=== PATIENT | male | born 1960 | race Hispanic/Latino ===

== ENCOUNTER → 2024-10-01 | Outpatient (CLI) | payer OTHER ==
--- NOTE | 2024-10-05 16:34 | HMCSR ---
APPROVED REPORT EXAM: Two-dimensional and M-mode echocardiogram with Doppler and color Doppler. INDICATION ICD: CAD without angina I25.10 2D Dimensions RVDd3.7 cmLVEF(%)67.6 (>50%)LVED Vol(simp.)102.0 mL IVSd0.8 (0.7-1.1cm)FS(%)38 %LVES Vol(simp.)43.8 mL LVDd4.8 (3.8-5.6cm)LA (2D)3.4 (1.6-4.0cm)LVEF(%, simp.)57 % PWd1.1 (0.7-1.1cm)Ao Root(2D)2.7 (2.0-3.7cm)LA ESV INDEX (4CH)24.80 mL/m2 IVSs1.0 cmLVOT diam2.2 (1.8-2.4cm)LA ESV INDEX (2CH)23.30 mL/m2 LVDs3.0 (2.5-4.0cm)LA ESV INDEX (BP)26.30 mL/m2 PWs1.6 cm M-Mode Dimensions EPSS0.8 cm LA (MM)3.8 (1.6-4.0cm) Ao Root(MM)3.1 (2.0-3.7cm) Aortic Valve AoV VTI0.3 mAo Mean GR4.0 mmHgLVOT VTI0.15 m SHASHANK (VMAX)2.2 cm2AVA (VTI) 2.2 cm2 Mitral Valve MV E Vmax62.6 cm/sDECEL Hunm161 ms MV A Vmax64.0 cm/sP 1/2 T82 ms E/A ratio1.0MVA (PHT)2.7 cm2 TDI E/E' Kptzkk92.0E/E' Lateral7.6 Medial E' Peak V5.20 cm/sLateral E' Peak V8.20 cm/s Pulmonary Valve PV Vmax0.9 m/s PV Peak GR2.9 mmHg Left Ventricle The left ventricle is normal size. There is normal LV segmental wall motion. There is normal left armando tricular wall thickness. LVEF is 55-60%. Stage I diastolic dysfunction. Right Ventricle The right ventricle is normal size. The right ventricular systolic function is normal. Atria The left atrium size is normal. The right atrium size is normal. Aortic Valve The aortic valve is normal in structure. No aortic regurgitation is present. There is no aortic valvu lar stenosis. Mitral Valve The mitral valve is normal in structure. There is no mitral valve regurgitation noted. There is no mi tral valve stenosis. Tricuspid Valve The tricuspid valve is normal in structure. There is no tricuspid valve regurgitation noted. Pulmonic Valve The pulmonary valve is normal in structure. There is no pulmonic valvular regurgitation. Great Vessels The aortic root is normal in size. The IVC is normal in size and collapses >50% with inspiration. Pericardium There is no pericardial effusion. Conclusion The left ventricle is normal size. LVEF is 55-60%.
== END | disposition home or self-care (01) ==
LOC: RAH 13:38
PROVIDERS: ATTEND Internal Medicine Cardiovascular Disease
DX: I51.89 Other ill-defined heart diseases (principal); I25.10 Atherosclerotic heart disease of native coronary artery without angina pectoris
CPT/HCPCS: 93306